=== PATIENT | male | born 1955 | race Caucasian/White ===

== ENCOUNTER 2017-12-18 15:56 | Inpatient (IN) ==
[2017-12-18] MEDS ORDERED: ONDANSETRON 4 MG/2 ML VIAL IV PRN (18:19)
[2017-12-18] MEDS ORDERED: ALBUTEROL 2.5 MG/3 ML NEB RESP TX PRN (18:19)
[2017-12-18] MEDS ORDERED: SODIUM CHLORIDE 0.9% 500 ML IV ONE (18:35)
[2017-12-18 18:48] LABS: Apearance,Urine Slightly Hazy (Clear); Bacteria,Urine Few /HPF (Few); Bilirubin,Urine Negative (Negative); Blood, Urine Moderate mg/dL (Negative); Glucose,Urine (UA) Negative (Negative); Ketones,Urine Negative (Negative); Nitrite,Urine Negative (Negative); Protein,Urine Negative; RBC,Urine 52 /HPF (0-4); Squamous Epithelial Cell,Urine Occasional /HPF (0-10); Urine Color Yellow (Yellow); Urine Specific Gravity 1.013 (1.001-1.035); Urine Urobilinogen < 2.0 EU/DL (0.2-1.0); WBC,Urine 93 /HPF (0-6)
[2017-12-18 18:51] LABS: Basophils % 0.4 % (0.0-0.8); Eosinophils # 0.3 10*3/uL (0.0-0.87); Eosinophils % 2.6 % (0.00-10.9); Hematocrit 24.5 VOL% (42.0-52.0); Hemoglobin 7.4 GM/DL (14.0-18.0); Immature Granulocytes % 0.4 %; Immature Granulocytes Absolute 0.04 #; Lymphocytes # 0.9 10*3/uL (1.4-4.0); Lymphocytes % 8.5 % (21.2-54.2); Mean Corpuscular HGB Conc 30.2 GM/DL (32-36); Mean Corpuscular Hemoglobin 26 PG (27-34); Mean Corpuscular Volume 84.8 FL (87-102); Mean Platelet Volume 10.5 FL (9.6-12.0); Monocytes % 8.9 % (1.7-12.7); Neutrophils # 8.6 10*3/uL (1.4-7.4); Neutrophils % 79.2 % (38.7-73.9); Platelet Count 326 T/CUMM (130-400); Red Blood Count 2.89 MC/CUMM (3.8-5.5); Red Cell Distribution Width 17.1 % (9.3-17.3); White Blood Count 10.8 T/CUMM (4-12)
[2017-12-18] MEDS: ALBUTEROL/IPRATROPIUM 3 ML NEB RESP TX SCH (19:06)
[2017-12-18 19:09] LABS: Ammonia 34 UMOL/L (11-32)
[2017-12-18 19:13] LABS: Lactic Acid 0.8 MMOL/L (0.4-2.0)
[2017-12-18 19:14] LABS: Alanine Aminotransferase 15 U/L (16-61); Alkaline Phosphatase 80 U/L (45-117); Aspartate Amino Transferase 25 U/L (0-37); Bilirubin,Total < 0.39 MG/DL (0.2-1.0); Blood Urea Nitrogen 15 MG/DL (7-18); Calcium 7.6 MG/DL (8.5-10.1); Glucose 91 MG/DL (74-106); Osmolality,Calculated 279.4 MOS/KG (273-304); Potassium 4.4 MMOL/L (3.5-5.1); Sodium 140 MMOL/L (136-145); Total Protein 5.9 G/DL (6.4-8.3)
[2017-12-18] MEDS: SODIUM CHLORIDE 0.9% 1,000 ML IV SCH (19:14)
[2017-12-18 19:15] LABS: Troponin I Only 0.047 NG/ML (0.00-0.045)
[2017-12-18 19:19] LABS: ABG Base Excess 0.4 MMOL/L (-2.5-2.5); ABG HCO3 24.8 MMOL/L (20-26); ABG Oxygen Saturation 99.8 % (95-100); ABG PCO2 54.9 MM HG (35-48); ABG PH 7.304 (7.35-7.45); ABG TCO2 25.8 MMOL/L (23-27)
[2017-12-18] MEDS ORDERED: MAGNESIUM SULF RIDER 1 GM in PREMIX 1 EACH IV ONE (19:32)
[2017-12-18] MEDS: ENOXAPARIN 40 MG/0.4 ML SYRINGE SUBCUT SCH (19:55)
[2017-12-18] MEDS: PANTOPRAZOLE 40 MG VIAL IV SCH (20:50)
[2017-12-19] MEDS: MIDAZOLAM 100 MG in SODIUM CHLORIDE 0.9% 80 ML IV SCH (00:41)
[2017-12-19] MEDS: ALBUTEROL/IPRATROPIUM 3 ML NEB RESP TX SCH ×4 (01:01→19:21)
[2017-12-19] MEDS: PROPOFOL 1,000 MG/100 ML BOTTLE IV SCH ×4 (02:21→18:16)
[2017-12-19 03:43] LABS: ABG Base Excess 0.4 MMOL/L (-2.5-2.5); ABG HCO3 24.8 MMOL/L (20-26); ABG Oxygen Saturation 99.4 % (95-100); ABG PCO2 50.5 MM HG (35-48); ABG PH 7.332 (7.35-7.45); ABG TCO2 25.1 MMOL/L (23-27)
[2017-12-19 04:10] LABS: Basophils # 0.1 10*3/uL (0.0-0.2); Basophils % 0.8 % (0.0-0.8); Eosinophils # 0.9 10*3/uL (0.0-0.87); Eosinophils % 10.8 % (0.00-10.9); Hematocrit 26.7 VOL% (42.0-52.0); Hemoglobin 7.9 GM/DL (14.0-18.0); Immature Granulocytes % 0.4 %; Immature Granulocytes Absolute 0.03 #; Lymphocytes # 1.1 10*3/uL (1.4-4.0); Lymphocytes % 13.5 % (21.2-54.2); Mean Corpuscular HGB Conc 29.6 GM/DL (32-36); Mean Corpuscular Hemoglobin 26 PG (27-34); Mean Corpuscular Volume 86.7 FL (87-102); Mean Platelet Volume 10.6 FL (9.6-12.0); Monocytes # 0.9 10*3/uL (0.11-0.8); Monocytes % 10.7 % (1.7-12.7); Neutrophils # 5.1 10*3/uL (1.4-7.4); Neutrophils % 63.8 % (38.7-73.9); Platelet Count 346 T/CUMM (130-400); Red Blood Count 3.08 MC/CUMM (3.8-5.5); Red Cell Distribution Width 17.3 % (9.3-17.3); White Blood Count 7.9 T/CUMM (4-12)
[2017-12-19 04:52] LABS: Osmolality,Calculated 279.1 MOS/KG (273-304); Potassium 4.1 MMOL/L (3.5-5.1); Risk Ratio 2.78; Thyroid Stimulating Hormone 0.958 uIU/ml (0.358-3.74); VLDL CHOLESTEROL 29.8 MG/DL
[2017-12-19 04:54] LABS: Folate 10.7 NG/ML (5.4-24.0); Vitamin B12 364 PG/ML (211-911)
[2017-12-19] MEDS: DEXTROSE 50% 25 GM/50 ML VIAL IV PRN (05:01)
[2017-12-19] MEDS: SODIUM CHLORIDE 0.9% 1,000 ML IV SCH ×3 (05:06→23:54)
[2017-12-19 05:25] LABS: Sedimentation Rate-Westergren 25 MM/HR (0-20)
[2017-12-19] MEDS: CEFEPIME 1,000 MG in SYRINGE 1 EACH IV SCH ×2 (07:15→18:11)
[2017-12-19] MEDS: methylPREDNISolone SOD SUC 40 MG/1 ML VIAL IV SCH ×2 (07:16→18:12)
[2017-12-19] MEDS: THIAMINE 200 MG/2 ML VIAL IV SCH (08:48)
[2017-12-19] MEDS: HALOPERIDOL 5 MG/ML AMP IV SCH ×2 (08:48→20:27)
[2017-12-19] MEDS ORDERED: GLUCAGON 1 MG VIAL IM PRN (10:56)
[2017-12-19 11:02] LABS: % Iron Saturation 12.7 % (18-50)
[2017-12-19] MEDS: INSULIN REGULAR 100 UNIT/ML SUBCUT SCH ×3 (11:27→23:53)
[2017-12-19 12:05] LABS: Hemoglobin A1 (Alkaline) 97.4 % (96.5-98.5); Hemoglobin A2 (Alkaline) 2.6 % (1.5-3.5)
[2017-12-19] MEDS ORDERED: cefTRIAXone 1,000 MG in SYRINGE 1 EACH IV SCH (16:00)
[2017-12-19] MEDS: AZITHROMYCIN INJ 500 MG in SODIUM CHLORIDE 0.9% 250 ML IV SCH (16:53)
[2017-12-19] MEDS: PANTOPRAZOLE 40 MG VIAL IV SCH (20:25)
[2017-12-19] MEDS: ENOXAPARIN 40 MG/0.4 ML SYRINGE SUBCUT SCH (20:26)
[2017-12-20] MEDS: MIDAZOLAM 100 MG in SODIUM CHLORIDE 0.9% 80 ML IV SCH (00:04)
[2017-12-20] MEDS: ALBUTEROL/IPRATROPIUM 3 ML NEB RESP TX SCH ×4 (00:45→20:02)
[2017-12-20] MEDS: PROPOFOL 1,000 MG/100 ML BOTTLE IV SCH ×6 (01:25→22:52)
[2017-12-20] MEDS: SODIUM CHLORIDE 0.9% 1,000 ML IV SCH ×4 (01:47→22:55)
[2017-12-20 03:24] LABS: Basophils % 0.3 % (0.0-0.8); Hematocrit 28.1 VOL% (42.0-52.0); Hemoglobin 8.5 GM/DL (14.0-18.0); Immature Granulocytes % 0.4 %; Immature Granulocytes Absolute 0.03 #; Lymphocytes # 0.7 10*3/uL (1.4-4.0); Lymphocytes % 8.9 % (21.2-54.2); Mean Corpuscular HGB Conc 30.2 GM/DL (32-36); Mean Corpuscular Hemoglobin 25 PG (27-34); Mean Corpuscular Volume 83.9 FL (87-102); Mean Platelet Volume 11.1 FL (9.6-12.0); Monocytes # 0.5 10*3/uL (0.11-0.8); Monocytes % 6.5 % (1.7-12.7); Neutrophils # 6.3 10*3/uL (1.4-7.4); Neutrophils % 83.9 % (38.7-73.9); Platelet Count 404 T/CUMM (130-400); Red Blood Count 3.35 MC/CUMM (3.8-5.5); Red Cell Distribution Width 17.5 % (9.3-17.3); White Blood Count 7.5 T/CUMM (4-12)
[2017-12-20 03:32] LABS: Calcium 7.6 MG/DL (8.5-10.1); Potassium 4.6 MMOL/L (3.5-5.1)
[2017-12-20 04:22] LABS: ABG Base Excess 0.8 MMOL/L (-2.5-2.5); ABG HCO3 26.4 MMOL/L (20-26); ABG Oxygen Saturation 98.4 % (95-100); ABG PCO2 47.2 MM HG (35-48); ABG PH 7.365 (7.35-7.45); ABG PO2 142.7 MM HG (80-95); ABG TCO2 27.8 MMOL/L (23-27)
[2017-12-20] MEDS: INSULIN REGULAR 100 UNIT/ML SUBCUT SCH ×4 (06:12→23:08)
[2017-12-20] MEDS: methylPREDNISolone SOD SUC 40 MG/1 ML VIAL IV SCH (06:25)
[2017-12-20] MEDS: CEFEPIME 1,000 MG in SYRINGE 1 EACH IV SCH ×2 (06:28→18:17)
[2017-12-20] MEDS: HALOPERIDOL 5 MG/ML AMP IV SCH ×3 (08:24→18:17)
[2017-12-20] MEDS: THIAMINE 200 MG/2 ML VIAL IV SCH (08:26)
[2017-12-20] MEDS: chlordiazePOXIDE 25 MG CAPSULE NG SCH ×3 (11:00→22:49)
[2017-12-20] MEDS: AZITHROMYCIN INJ 500 MG in SODIUM CHLORIDE 0.9% 250 ML IV SCH (15:15)
[2017-12-20] MEDS ORDERED: SODIUM CHLORIDE 0.9% 1,000 ML IV ONE (15:19)
[2017-12-20] MEDS: ENOXAPARIN 40 MG/0.4 ML SYRINGE SUBCUT SCH (22:07)
[2017-12-20] MEDS: PANTOPRAZOLE 40 MG VIAL IV SCH (22:08)
[2017-12-21] MEDS: ALBUTEROL/IPRATROPIUM 3 ML NEB RESP TX SCH ×4 (01:19→19:09)
[2017-12-21] MEDS: HALOPERIDOL 5 MG/ML AMP IV SCH ×4 (01:54→18:20)
[2017-12-21] MEDS: MIDAZOLAM 100 MG in SODIUM CHLORIDE 0.9% 80 ML IV SCH (01:56)
[2017-12-21 03:34] LABS: Basophils % 0.3 % (0.0-0.8); Eosinophils # 0.1 10*3/uL (0.0-0.87); Eosinophils % 1.4 % (0.00-10.9); Hematocrit 25.8 VOL% (42.0-52.0); Hemoglobin 7.9 GM/DL (14.0-18.0); Immature Granulocytes % 0.4 %; Immature Granulocytes Absolute 0.04 #; Lymphocytes # 1.6 10*3/uL (1.4-4.0); Lymphocytes % 15.8 % (21.2-54.2); Mean Corpuscular HGB Conc 30.6 GM/DL (32-36); Mean Corpuscular Hemoglobin 25 PG (27-34); Mean Corpuscular Volume 82.2 FL (87-102); Monocytes # 1.1 10*3/uL (0.11-0.8); Monocytes % 11.3 % (1.7-12.7); Neutrophils # 7.1 10*3/uL (1.4-7.4); Neutrophils % 70.8 % (38.7-73.9); Platelet Count 448 T/CUMM (130-400); Red Blood Count 3.14 MC/CUMM (3.8-5.5); Red Cell Distribution Width 17.7 % (9.3-17.3)
[2017-12-21] MEDS: PROPOFOL 1,000 MG/100 ML BOTTLE IV SCH ×3 (04:02→17:35)
[2017-12-21 04:10] LABS: ABG Base Excess -0.4 MMOL/L (-2.5-2.5); ABG Oxygen Saturation 85.7 % (95-100); ABG PCO2 44.9 MM HG (35-48); ABG PH 7.364 (7.35-7.45); ABG TCO2 26.4 MMOL/L (23-27); Pt O2 Delivery Device Ventilator
[2017-12-21] MEDS: chlordiazePOXIDE 25 MG CAPSULE NG SCH ×4 (05:29→22:33)
[2017-12-21] MEDS: INSULIN REGULAR 100 UNIT/ML SUBCUT SCH ×3 (05:29→18:10)
[2017-12-21 05:34] LABS: ABG Base Excess -0.9 MMOL/L (-2.5-2.5); ABG HCO3 23.6 MMOL/L (20-26); ABG Oxygen Saturation 97.5 % (95-100); ABG PCO2 42.1 MM HG (35-48); ABG PO2 93.1 MM HG (80-95); ABG TCO2 22.7 MMOL/L (23-27); Pt O2 Delivery Device Ventilator
[2017-12-21] MEDS: methylPREDNISolone SOD SUC 40 MG/1 ML VIAL IV SCH (06:15)
[2017-12-21] MEDS: CEFEPIME 1,000 MG in SYRINGE 1 EACH IV SCH ×2 (06:21→18:20)
[2017-12-21] MEDS: SODIUM CHLORIDE 0.9% 1,000 ML IV SCH (08:00)
[2017-12-21 08:31] LABS: ABG Base Excess -2.6 MMOL/L (-2.5-2.5); ABG HCO3 22.2 MMOL/L (20-26); ABG Oxygen Saturation 92.5 % (95-100); ABG PCO2 47.6 MM HG (35-48); ABG PH 7.308 (7.35-7.45); ABG PO2 69.2 MM HG (80-95); ABG TCO2 22.2 MMOL/L (23-27)
[2017-12-21] MEDS: THIAMINE 200 MG/2 ML VIAL IV SCH (09:50)
[2017-12-21] MEDS: IRON SUCROSE 100 MG/5 ML VIAL IV SCH (09:55)
[2017-12-21] MEDS: AZITHROMYCIN INJ 500 MG in SODIUM CHLORIDE 0.9% 250 ML IV SCH (16:00)
[2017-12-21] MEDS: ENOXAPARIN 40 MG/0.4 ML SYRINGE SUBCUT SCH (19:42)
[2017-12-21] MEDS: PANTOPRAZOLE 40 MG VIAL IV SCH (21:05)
[2017-12-22] MEDS: SODIUM CHLORIDE 0.9% 1,000 ML IV SCH ×3 (01:03→22:03)
[2017-12-22] MEDS: INSULIN REGULAR 100 UNIT/ML SUBCUT SCH ×4 (01:05→18:02)
[2017-12-22] MEDS: MIDAZOLAM 100 MG in SODIUM CHLORIDE 0.9% 80 ML IV SCH ×3 (01:06→19:05)
[2017-12-22] MEDS: PROPOFOL 1,000 MG/100 ML BOTTLE IV SCH ×3 (01:06→06:55)
[2017-12-22] MEDS: ALBUTEROL/IPRATROPIUM 3 ML NEB RESP TX SCH ×4 (01:25→19:52)
[2017-12-22] MEDS: HALOPERIDOL 5 MG/ML AMP IV SCH ×4 (01:32→18:45)
[2017-12-22 04:10] LABS: ABG Base Excess 2.5 MMOL/L (-2.5-2.5); ABG HCO3 27.2 MMOL/L (20-26); ABG Oxygen Saturation 96.8 % (95-100); ABG PCO2 42.7 MM HG (35-48); ABG PH 7.422 (7.35-7.45); ABG PO2 97.6 MM HG (80-95); ABG TCO2 28.5 MMOL/L (23-27)
[2017-12-22] MEDS: chlordiazePOXIDE 25 MG CAPSULE NG SCH ×2 (04:12→10:45)
[2017-12-22 04:25] LABS: Basophils # 0.1 10*3/uL (0.0-0.2); Basophils % 0.7 % (0.0-0.8); Eosinophils # 0.2 10*3/uL (0.0-0.87); Hematocrit 26.9 VOL% (42.0-52.0); Hemoglobin 8.4 GM/DL (14.0-18.0); Immature Granulocytes % 0.3 %; Immature Granulocytes Absolute 0.02 #; Lymphocytes # 1.5 10*3/uL (1.4-4.0); Lymphocytes % 20.3 % (21.2-54.2); Mean Corpuscular HGB Conc 31.2 GM/DL (32-36); Mean Corpuscular Hemoglobin 25 PG (27-34); Mean Corpuscular Volume 80.8 FL (87-102); Mean Platelet Volume 10.9 FL (9.6-12.0); Monocytes # 0.8 10*3/uL (0.11-0.8); Monocytes % 10.9 % (1.7-12.7); Neutrophils # 4.8 10*3/uL (1.4-7.4); Neutrophils % 64.8 % (38.7-73.9); Platelet Count 458 T/CUMM (130-400); Red Blood Count 3.33 MC/CUMM (3.8-5.5); Red Cell Distribution Width 17.9 % (9.3-17.3); White Blood Count 7.4 T/CUMM (4-12)
[2017-12-22 05:01] LABS: Calcium 8.3 MG/DL (8.5-10.1); Osmolality,Calculated 292.4 MOS/KG (273-304); Potassium 4.2 MMOL/L (3.5-5.1); Prealbumin 16.5 MG/DL (20-40)
[2017-12-22] MEDS: methylPREDNISolone SOD SUC 40 MG/1 ML VIAL IV SCH (06:35)
[2017-12-22] MEDS: CEFEPIME 1,000 MG in SYRINGE 1 EACH IV SCH ×2 (06:35→18:45)
[2017-12-22] MEDS: THIAMINE 200 MG/2 ML VIAL IV SCH (08:38)
[2017-12-22] MEDS: IRON SUCROSE 100 MG/5 ML VIAL IV SCH (08:40)
[2017-12-22 09:54] LABS: ABG Base Excess 2.4 MMOL/L (-2.5-2.5); ABG HCO3 26.5 MMOL/L (20-26); ABG Oxygen Saturation 90.7 % (95-100); ABG PCO2 45.5 MM HG (35-48); ABG PH 7.392 (7.35-7.45); ABG PO2 61.9 MM HG (80-95); ABG TCO2 25.6 MMOL/L (23-27)
[2017-12-22 12:40] LABS: ABG Base Excess 3.3 MMOL/L (-2.5-2.5); ABG HCO3 27.3 MMOL/L (20-26); ABG Oxygen Saturation 97.6 % (95-100); ABG PCO2 45.4 MM HG (35-48); ABG PH 7.405 (7.35-7.45); ABG PO2 98.8 MM HG (80-95); ABG TCO2 26.3 MMOL/L (23-27)
[2017-12-22] MEDS: AZITHROMYCIN INJ 500 MG in SODIUM CHLORIDE 0.9% 250 ML IV SCH (16:40)
[2017-12-22] MEDS: PANTOPRAZOLE 40 MG VIAL IV SCH (20:17)
[2017-12-22] MEDS: ENOXAPARIN 40 MG/0.4 ML SYRINGE SUBCUT SCH (20:19)
[2017-12-23] MEDS: DEXTROSE 50% 25 GM/50 ML VIAL IV PRN ×2 (00:27→06:05)
[2017-12-23] MEDS: ALBUTEROL/IPRATROPIUM 3 ML NEB RESP TX SCH ×4 (00:52→19:16)
[2017-12-23] MEDS: INSULIN REGULAR 100 UNIT/ML SUBCUT SCH ×5 (01:00→23:22)
[2017-12-23] MEDS: HALOPERIDOL 5 MG/ML AMP IV SCH ×2 (01:03→06:06)
[2017-12-23 04:45] LABS: Basophils # 0.1 10*3/uL (0.0-0.2); Basophils % 0.7 % (0.0-0.8); Eosinophils # 0.3 10*3/uL (0.0-0.87); Hemoglobin 8.4 GM/DL (14.0-18.0); Immature Granulocytes % 0.3 %; Immature Granulocytes Absolute 0.03 #; Lymphocytes # 1.9 10*3/uL (1.4-4.0); Lymphocytes % 21.3 % (21.2-54.2); Mean Corpuscular HGB Conc 31.1 GM/DL (32-36); Mean Corpuscular Hemoglobin 25 PG (27-34); Mean Corpuscular Volume 80.1 FL (87-102); Mean Platelet Volume 10.9 FL (9.6-12.0); Monocytes # 1.3 10*3/uL (0.11-0.8); Monocytes % 13.9 % (1.7-12.7); Neutrophils # 5.5 10*3/uL (1.4-7.4); Neutrophils % 60.8 % (38.7-73.9); Platelet Count 463 T/CUMM (130-400); Red Blood Count 3.37 MC/CUMM (3.8-5.5); Red Cell Distribution Width 17.8 % (9.3-17.3)
[2017-12-23 05:12] LABS: Calcium 8.5 MG/DL (8.5-10.1); Osmolality,Calculated 287.7 MOS/KG (273-304); Potassium 3.9 MMOL/L (3.5-5.1)
[2017-12-23] MEDS: CEFEPIME 1,000 MG in SYRINGE 1 EACH IV SCH ×2 (06:06→18:15)
[2017-12-23] MEDS: methylPREDNISolone SOD SUC 40 MG/1 ML VIAL IV SCH (06:06)
[2017-12-23] MEDS ORDERED: HALOPERIDOL 5 MG/ML AMP IV SCH (07:00)
[2017-12-23] MEDS: DEXT 5% NACL 0.45% KCL 10 MEQ 10 MEQ/1,000 ML BAG IV SCH ×2 (07:06→22:10)
[2017-12-23] MEDS: IRON SUCROSE 100 MG/5 ML VIAL IV SCH (08:16)
[2017-12-23] MEDS: THIAMINE 200 MG/2 ML VIAL IV SCH (08:22)
[2017-12-23] MEDS: ZIPRASIDONE 20 MG/1 ML VIAL IM SCH ×2 (11:05→17:36)
[2017-12-23] MEDS: AZITHROMYCIN INJ 500 MG in SODIUM CHLORIDE 0.9% 250 ML IV SCH (16:24)
[2017-12-23] MEDS: ENOXAPARIN 40 MG/0.4 ML SYRINGE SUBCUT SCH (22:05)
[2017-12-23] MEDS: PANTOPRAZOLE 40 MG VIAL IV SCH (22:06)
[2017-12-24] MEDS: ZIPRASIDONE 20 MG/1 ML VIAL IM SCH ×3 (00:10→17:47)
[2017-12-24] MEDS: ALBUTEROL/IPRATROPIUM 3 ML NEB RESP TX SCH ×4 (00:41→19:24)
[2017-12-24] MEDS: INSULIN REGULAR 100 UNIT/ML SUBCUT SCH ×3 (07:07→18:03)
[2017-12-24] MEDS: CEFEPIME 1,000 MG in SYRINGE 1 EACH IV SCH ×2 (07:14→18:11)
[2017-12-24] MEDS: THIAMINE 200 MG/2 ML VIAL IV SCH (10:16)
[2017-12-24] MEDS: DEXT 5% NACL 0.45% KCL 10 MEQ 10 MEQ/1,000 ML BAG IV SCH (10:20)
[2017-12-24] MEDS ORDERED: ZIPRASIDONE 20 MG/1 ML VIAL IM PRN (12:40)
[2017-12-24] MEDS: QUEtiapine 25 MG TABLET PO SCH (13:39)
[2017-12-24] MEDS: AZITHROMYCIN INJ 500 MG in SODIUM CHLORIDE 0.9% 250 ML IV SCH (15:58)
[2017-12-24] MEDS: PANTOPRAZOLE 40 MG VIAL IV SCH (20:27)
[2017-12-24] MEDS: ENOXAPARIN 40 MG/0.4 ML SYRINGE SUBCUT SCH (20:28)
[2017-12-25] MEDS: ALBUTEROL/IPRATROPIUM 3 ML NEB RESP TX SCH ×4 (00:21→19:44)
[2017-12-25] MEDS: QUEtiapine 25 MG TABLET PO SCH ×3 (00:22→20:24)
[2017-12-25] MEDS: INSULIN REGULAR 100 UNIT/ML SUBCUT SCH ×5 (01:30→20:21)
[2017-12-25] MEDS: DEXT 5% NACL 0.45% KCL 10 MEQ 10 MEQ/1,000 ML BAG IV SCH ×2 (02:08→13:42)
[2017-12-25 05:24] LABS: Basophils # 0.1 10*3/uL (0.0-0.2); Eosinophils % 9.5 % (0.00-10.9); Hematocrit 30.4 VOL% (42.0-52.0); Hemoglobin 9.3 GM/DL (14.0-18.0); Immature Granulocytes % 0.7 %; Immature Granulocytes Absolute 0.07 #; Lymphocytes # 2.1 10*3/uL (1.4-4.0); Lymphocytes % 19.8 % (21.2-54.2); Mean Corpuscular HGB Conc 30.6 GM/DL (32-36); Mean Corpuscular Hemoglobin 25 PG (27-34); Mean Corpuscular Volume 82.4 FL (87-102); Mean Platelet Volume 10.9 FL (9.6-12.0); Monocytes # 1.2 10*3/uL (0.11-0.8); Monocytes % 11.7 % (1.7-12.7); Neutrophils # 6.1 10*3/uL (1.4-7.4); Neutrophils % 57.3 % (38.7-73.9); Platelet Count 409 T/CUMM (130-400); Red Blood Count 3.69 MC/CUMM (3.8-5.5); Red Cell Distribution Width 17.3 % (9.3-17.3); White Blood Count 10.6 T/CUMM (4-12)
[2017-12-25 05:39] LABS: Calcium 8.6 MG/DL (8.5-10.1); Osmolality,Calculated 284.8 MOS/KG (273-304)
[2017-12-25] MEDS: CEFEPIME 1,000 MG in SYRINGE 1 EACH IV SCH ×2 (07:11→18:39)
[2017-12-25] MEDS: THIAMINE 200 MG/2 ML VIAL IV SCH (08:52)
[2017-12-25] MEDS ORDERED: ACETAMINOPHEN 325 MG TABLET ONE (09:55)
[2017-12-25] MEDS: ACETAMINOPHEN 325 MG TABLET PO PRN ×2 (09:58→22:03)
[2017-12-25] MEDS: PANTOPRAZOLE 40 MG TABLET PO SCH (13:42)
[2017-12-25] MEDS: AZITHROMYCIN INJ 500 MG in SODIUM CHLORIDE 0.9% 250 ML IV SCH (16:52)
[2017-12-25] MEDS: ENOXAPARIN 40 MG/0.4 ML SYRINGE SUBCUT SCH (20:24)
[2017-12-26] MEDS: ALBUTEROL/IPRATROPIUM 3 ML NEB RESP TX SCH ×2 (01:55→07:10)
[2017-12-26] MEDS: DEXT 5% NACL 0.45% KCL 10 MEQ 10 MEQ/1,000 ML BAG IV SCH (04:39)
[2017-12-26] MEDS: ACETAMINOPHEN 325 MG TABLET PO PRN (04:43)
[2017-12-26] MEDS: CEFEPIME 1,000 MG in SYRINGE 1 EACH IV SCH (06:06)
[2017-12-26 06:10] LABS: Calcium 8.1 MG/DL (8.5-10.1); Osmolality,Calculated 289.7 MOS/KG (273-304); Potassium 3.9 MMOL/L (3.5-5.1)
[2017-12-26] MEDS ORDERED: THIAMINE 100 MG TABLET PO SCH (09:00)
[2017-12-26] MEDS: INSULIN REGULAR 100 UNIT/ML SUBCUT SCH ×2 (09:13→11:41)
[2017-12-26] MEDS: QUEtiapine 25 MG TABLET PO SCH (09:13)
[2017-12-26] MEDS: PANTOPRAZOLE 40 MG TABLET PO SCH (09:13)
[2017-12-26 12:29] VITALS: BP 140/88
== END 2017-12-26 14:08 | disposition home or self-care (01) | DRG 92 ==
LOC: N.ICU 18:16 → SUATTDRO 18:16 → N.2E 12-25 13:59
PROVIDERS: ADMIT Internal Medicine; ATTEND Internal Medicine

== ENCOUNTER 2019-07-22 19:45 | Inpatient (IN) ==
[2019-07-22] MEDS ORDERED: SODIUM CHLORIDE 0.9% 1,000 ML IV ONE (22:09)
[2019-07-22] MEDS ORDERED: MAGNESIUM SULF RIDER 4 GM in PREMIX 1 EACH IV PRN (22:20)
[2019-07-22] MEDS ORDERED: POTASSIUM CHLORIDE 20 MEQ TABLET PO PRN (22:20)
[2019-07-22] MEDS ORDERED: POTASSIUM CHLORIDE RIDER 10 MEQ in PREMIX 1 EACH IV PRN (22:20)
[2019-07-22] MEDS ORDERED: MAGNESIUM SULF RIDER 2 GM in PREMIX 1 EACH IV PRN (22:20)
[2019-07-22] MEDS ORDERED: ACETAMINOPHEN 325 MG TABLET PO PRN (22:21)
[2019-07-22] MEDS ORDERED: diphenhydrAMINE CAP 25 MG CAPSULE PO PRN (22:31)
[2019-07-22] MEDS ORDERED: ONDANSETRON 4 MG/2 ML VIAL IV PRN (22:31)
[2019-07-22] MEDS ORDERED: hydrALAZINE 20 MG/1 ML VIAL IV PRN (22:31)
[2019-07-22] MEDS ORDERED: NICOTINE 21 MG/24 HR PATCH TRANSDERM PRN (22:31)
[2019-07-22] MEDS ORDERED: NOREPINEPHRINE 4 MG/4 ML VIAL IV ONE (22:39)
[2019-07-22] MEDS: dilTIAZem Drip 125 MG/125 ML PREMIX IV SCH (22:41)
[2019-07-22 22:44] LABS: Allen Test Positive
[2019-07-22] MEDS: NOREPINEPHRINE 8 MG in SODIUM CHLORIDE 0.9% 242 ML IV PRN (22:44)
[2019-07-22 22:45] LABS: Basophils # 0.1 10*3/uL (0.0-0.2); Basophils % 0.2 % (0.0-0.8); Hematocrit 28.6 VOL% (42.0-52.0); Hemoglobin 8.4 GM/DL (14.0-18.0); Immature Granulocytes % 4.4 %; Immature Granulocytes Absolute 1.18 #; Lymphocytes # 0.4 10*3/uL (1.4-4.0); Lymphocytes % 1.5 % (21.2-54.2); Mean Corpuscular HGB Conc 29.4 GM/DL (32-36); Mean Corpuscular Volume 86.9 FL (87-102); Mean Platelet Volume 11.1 FL (9.6-12.0); Monocytes % 4.3 % (1.7-12.7); Neutrophils % 89.6 % (38.7-73.9); Platelet Count 228 T/CUMM (130-400); Red Blood Count 3.29 MC/CUMM (3.8-5.5); Red Cell Distribution Width 16.2 % (9.3-17.3); White Blood Count 26.8 T/CUMM (4-12)
[2019-07-22 22:45] LABS: ABG Base Excess -2.7 MMOL/L (-2.5-2.5); ABG HCO3 24.3 MMOL/L (20-26); ABG Oxygen Saturation 75.1 % (95-100); ABG PCO2 54.1 MM HG (35-48); ABG PH 7.271 (7.35-7.45); ABG PO2 44.2 MM HG (80-95)
[2019-07-22] MEDS: MORPHINE 4 MG/1 ML VIAL IV PRN (22:48)
[2019-07-22] MEDS ORDERED: PIPERACILLIN/TAZOBACTAM 3,375 MG in SODIUM CHLORIDE 0.9% 100 ML IV SCH (23:00)
[2019-07-22 23:09] LABS: INR 1.1; PT Patient Result 12.2 SECS (9.6-12.2); Partial Thromboplastin Time 35.9 SECS (20.8-36.0)
[2019-07-22 23:11] LABS: Blood Urea Nitrogen 26 MG/DL (7-18); Estimated Glom Filtration Rate 55 ML/MIN; Glucose 106 MG/DL (74-106); Osmolality,Calculated 279.7 MOS/KG (273-304); Troponin I < 0.015 NG/ML (0.00-0.045)
[2019-07-22 23:13] LABS: Band Neutrophils 15 % (0-10); Segmented Neutrophils 81 % (50-85); Total Cells Counted 100
[2019-07-22 23:14] LABS: Anisocytosis 1+; Hypochromasia 1+; Microcytosis 1+
[2019-07-22 23:15] LABS: Polychromasia Slight
[2019-07-22 23:16] LABS: Ovalocytes Slight; Platelet Estimate Normal; Stomatocytes Slight
[2019-07-22 23:19] LABS: Alanine Aminotransferase 15 U/L (16-61); Albumin 2.1 G/DL (3.4-5.0); Alkaline Phosphatase 69 U/L (45-117); Aspartate Amino Transferase 12 U/L (0-37); Bilirubin,Indirect 0.3 MG/DL (0.0-1.0); Total Protein 6.1 G/DL (6.4-8.3)
[2019-07-23] MEDS: LEVOFLOXACIN INJ 750 MG in PREMIX 1 EACH IV SCH (00:52)
[2019-07-23] MEDS: VANCOMYCIN INJ 1,000 MG in SODIUM CHLORIDE 0.9% 250 ML IV SCH ×3 (00:53→23:34)
[2019-07-23] MEDS: ALBUTEROL/IPRATROPIUM 3 ML NEB RESP TX SCH ×4 (00:54→19:50)
[2019-07-23 00:57] LABS: ABG Base Excess -3.8 MMOL/L (-2.5-2.5); ABG HCO3 21.1 MMOL/L (20-26); ABG Oxygen Saturation 92.7 % (95-100); ABG PCO2 51.3 MM HG (35-48); ABG PH 7.266 (7.35-7.45); ABG PO2 68.2 MM HG (80-95); ABG TCO2 21.9 MMOL/L (23-27); Allen Test Positive
[2019-07-23 04:00] LABS: ABG Base Excess -5.4 MMOL/L (-2.5-2.5); ABG HCO3 19.9 MMOL/L (20-26); ABG Oxygen Saturation 97.7 % (95-100); ABG PH 7.255 (7.35-7.45); ABG TCO2 20.5 MMOL/L (23-27); Allen Test Positive; Pt O2 Delivery Device Other
[2019-07-23] MEDS: MORPHINE 4 MG/1 ML VIAL IV PRN ×3 (04:18→13:47)
[2019-07-23] MEDS: PIPERACILLIN/TAZOBACTAM 3,375 MG in SODIUM CHLORIDE 0.9% 100 ML IV SCH ×3 (04:23→18:36)
[2019-07-23 08:29] LABS: Hematocrit 30.8 VOL% (42.0-52.0); Hemoglobin 9.1 GM/DL (14.0-18.0); Mean Corpuscular HGB Conc 29.5 GM/DL (32-36); Red Cell Distribution Width 16.2 % (9.3-17.3)
[2019-07-23 08:33] LABS: Basophils # 0.1 10*3/uL (0.0-0.2); Basophils % 0.3 % (0.0-0.8); Immature Granulocytes Absolute 1.52 #; Lymphocytes # 0.8 10*3/uL (1.4-4.0); Lymphocytes % 2.1 % (21.2-54.2); Mean Corpuscular Volume 85.8 FL (87-102); Mean Platelet Volume 10.8 FL (9.6-12.0); Monocytes % 4.1 % (1.7-12.7); Neutrophils % 89.5 % (38.7-73.9); Red Blood Count 3.59 MC/CUMM (3.8-5.5)
[2019-07-23 08:35] LABS: Platelet Count 291 T/CUMM (130-400); White Blood Count 37.6 T/CUMM (4-12)
[2019-07-23] MEDS: OSELTAMIVIR 30 MG CAPSULE PO SCH ×2 (08:48→16:41)
[2019-07-23 08:54] LABS: Band Neutrophils 13 % (0-10); Lymphocytes 1 % (20-55); Segmented Neutrophils 77 % (50-85); Total Cells Counted 100
[2019-07-23] MEDS: HYDROCORTISONE 100 MG VIAL IV SCH ×3 (08:54→23:33)
[2019-07-23 08:55] LABS: Hypochromasia 1+; Microcytosis 1+
[2019-07-23 08:56] LABS: Anisocytosis 1+; Ovalocytes Slight; Platelet Estimate Normal
[2019-07-23] MEDS ORDERED: OSELTAMIVIR 30 MG CAPSULE PO SCH (09:00)
[2019-07-23 09:46] LABS: Calcium 8.4 MG/DL (8.5-10.1); Osmolality,Calculated 283.7 MOS/KG (273-304)
[2019-07-23] MEDS: NOREPINEPHRINE 8 MG in SODIUM CHLORIDE 0.9% 242 ML IV PRN (12:01)
[2019-07-23 12:46] LABS: Apearance,Urine CLEAR (Clear); Bilirubin,Urine Negative (Negative); Blood, Urine Negative (Negative); Glucose,Urine (UA) Negative (Negative); Hyaline Casts,Urine 1 /LPF (0-3); Ketones,Urine Negative (Negative); Mucus,Urine Occasional /LPF (Occasional); Nitrite,Urine Negative (Negative); Protein,Urine Negative; RBC,Urine 1 /HPF (0-4); Squamous Epithelial Cell,Urine Occasional /HPF (0-10); Urine Color Yellow (Yellow); Urine Specific Gravity 1.017 (1.001-1.035); Urine Urobilinogen < 2.0 EU/DL (0.2-1.0); WBC,Urine <1 /HPF (0-6)
[2019-07-23] MEDS: traZODone 50 MG TABLET PO SCH (20:32)
[2019-07-23] MEDS: guaiFENesin/DM ER 600-30 MG TABLET PO PRN (20:32)
[2019-07-23] MEDS: dilTIAZem Drip 125 MG/125 ML PREMIX IV SCH ×2 (20:37→23:25)
[2019-07-24] MEDS: LEVOFLOXACIN INJ 750 MG in PREMIX 1 EACH IV SCH ×2 (00:36→23:32)
[2019-07-24] MEDS: ALBUTEROL/IPRATROPIUM 3 ML NEB RESP TX SCH ×4 (00:49→18:10)
[2019-07-24 02:58] LABS: ABG Base Excess -0.8 MMOL/L (-2.5-2.5); ABG HCO3 23.7 MMOL/L (20-26); ABG Oxygen Saturation 94.5 % (95-100); ABG PCO2 47.2 MM HG (35-48); ABG PH 7.336 (7.35-7.45); ABG PO2 71.9 MM HG (80-95); ABG TCO2 23.5 MMOL/L (23-27); Allen Test Positive
[2019-07-24] MEDS: PIPERACILLIN/TAZOBACTAM 3,375 MG in SODIUM CHLORIDE 0.9% 100 ML IV SCH ×2 (04:20→11:30)
[2019-07-24 04:50] LABS: Basophils % 0.1 % (0.0-0.8); Hematocrit 28.4 VOL% (42.0-52.0); Hemoglobin 8.3 GM/DL (14.0-18.0); Immature Granulocytes % 4.4 %; Immature Granulocytes Absolute 1.42 #; Lymphocytes # 0.5 10*3/uL (1.4-4.0); Lymphocytes % 1.7 % (21.2-54.2); Mean Corpuscular HGB Conc 29.2 GM/DL (32-36); Mean Corpuscular Volume 86.1 FL (87-102); Mean Platelet Volume 11.2 FL (9.6-12.0); Monocytes % 7.6 % (1.7-12.7); Neutrophils % 86.2 % (38.7-73.9); Platelet Count 297 T/CUMM (130-400); Red Cell Distribution Width 16.3 % (9.3-17.3); White Blood Count 32.3 T/CUMM (4-12)
[2019-07-24 05:03] LABS: Calcium 8.2 MG/DL (8.5-10.1); Osmolality,Calculated 293.3 MOS/KG (273-304)
[2019-07-24 05:15] LABS: Band Neutrophils 4 % (0-10); Hypochromasia 1+; Lymphocytes 1 % (20-55); Platelet Estimate Adequate; Segmented Neutrophils 92 % (50-85); Total Cells Counted 100
[2019-07-24 05:16] LABS: Microcytosis 1+; Ovalocytes Slight
[2019-07-24] MEDS: NOREPINEPHRINE 8 MG in SODIUM CHLORIDE 0.9% 242 ML IV PRN (06:37)
[2019-07-24] MEDS: HYDROCORTISONE 100 MG VIAL IV SCH ×2 (07:46→21:39)
[2019-07-24] MEDS: OSELTAMIVIR 30 MG CAPSULE PO SCH ×2 (07:48→16:58)
[2019-07-24] MEDS: dilTIAZem Drip 125 MG/125 ML PREMIX IV SCH ×2 (09:14→23:31)
[2019-07-24] MEDS ORDERED: DIGOXIN 0.5 MG/2 ML AMP IV ONE ×2 (09:35→11:00)
[2019-07-24] MEDS: LACTATED RINGERS 1,000 ML IV SCH (11:31)
[2019-07-24] MEDS: VANCOMYCIN INJ 1,000 MG in SODIUM CHLORIDE 0.9% 250 ML IV SCH ×2 (13:52→23:32)
[2019-07-24] MEDS: clonazePAM 0.5 MG TABLET PO PRN (19:31)
[2019-07-24] MEDS: guaiFENesin/DM ER 600-30 MG TABLET PO PRN (21:39)
[2019-07-24] MEDS: traZODone 50 MG TABLET PO SCH (21:39)
[2019-07-24] MEDS ORDERED: INFLUENZA VIRUS VACCINE 0.5 ML SYRINGE IM ONE (22:16)
[2019-07-25] MEDS: PIPERACILLIN/TAZOBACTAM 3,375 MG in SODIUM CHLORIDE 0.9% 100 ML IV SCH ×2 (00:27→08:45)
[2019-07-25] MEDS: ALBUTEROL/IPRATROPIUM 3 ML NEB RESP TX SCH ×4 (00:50→19:25)
[2019-07-25] MEDS: clonazePAM 0.5 MG TABLET PO PRN ×2 (02:31→18:09)
[2019-07-25 04:54] LABS: Basophils # 0.1 10*3/uL (0.0-0.2); Basophils % 0.3 % (0.0-0.8); Eosinophils % 0.1 % (0.00-10.9); Hematocrit 27.7 VOL% (42.0-52.0); Hemoglobin 8.1 GM/DL (14.0-18.0); Immature Granulocytes % 3.5 %; Immature Granulocytes Absolute 0.66 #; Lymphocytes # 0.6 10*3/uL (1.4-4.0); Lymphocytes % 3.3 % (21.2-54.2); Mean Corpuscular HGB Conc 29.2 GM/DL (32-36); Mean Corpuscular Volume 85.8 FL (87-102); Mean Platelet Volume 10.8 FL (9.6-12.0); Monocytes % 8.7 % (1.7-12.7); NRBC # 0.03 10*3/uL; Neutrophils % 84.1 % (38.7-73.9); Platelet Count 293 T/CUMM (130-400); Red Blood Count 3.23 MC/CUMM (3.8-5.5); Red Cell Distribution Width 16.6 % (9.3-17.3)
[2019-07-25 05:15] LABS: Hypochromasia 1+; Lymphocytes 4 % (20-55); Ovalocytes Slight; Platelet Estimate Adequate; Segmented Neutrophils 87 % (50-85); Total Cells Counted 100
[2019-07-25 05:16] LABS: Microcytosis 1+
[2019-07-25 05:49] LABS: Calcium 8.3 MG/DL (8.5-10.1); Osmolality,Calculated 294.1 MOS/KG (273-304)
[2019-07-25] MEDS: LACTATED RINGERS 1,000 ML IV SCH ×2 (05:56→05:57)
[2019-07-25] MEDS: HYDROCORTISONE 100 MG VIAL IV SCH (05:57)
[2019-07-25] MEDS: OSELTAMIVIR 30 MG CAPSULE PO SCH ×2 (08:46→17:33)
[2019-07-25] MEDS: predniSONE 20 MG TABLET PO SCH ×2 (10:35→20:48)
[2019-07-25] MEDS: DILTIAZEM CD 180 MG CAPSULE PO SCH (10:36)
[2019-07-25] MEDS ORDERED: HYDROCORTISONE 100 MG VIAL IV ONE (13:00)
[2019-07-25] MEDS: dilTIAZem Drip 125 MG/125 ML PREMIX IV SCH (14:37)
[2019-07-25] MEDS ORDERED: DILTIAZEM 60 MG TABLET PO ONE (16:58)
[2019-07-25] MEDS: AMOXICILLIN/CLAV 875 MG TABLET PO SCH (17:06)
[2019-07-25] MEDS: traZODone 50 MG TABLET PO SCH (20:48)
[2019-07-26] MEDS: dilTIAZem Drip 125 MG/125 ML PREMIX IV SCH ×2 (00:03→19:24)
[2019-07-26] MEDS: ALBUTEROL/IPRATROPIUM 3 ML NEB RESP TX SCH ×4 (00:58→22:05)
[2019-07-26 05:41] LABS: Basophils # 0.1 10*3/uL (0.0-0.2); Basophils % 0.6 % (0.0-0.8); Hematocrit 31.3 VOL% (42.0-52.0); Hemoglobin 9.2 GM/DL (14.0-18.0); Immature Granulocytes % 6.6 %; Immature Granulocytes Absolute 1.03 #; Lymphocytes # 0.9 10*3/uL (1.4-4.0); Lymphocytes % 5.8 % (21.2-54.2); Mean Corpuscular HGB Conc 29.4 GM/DL (32-36); Mean Corpuscular Volume 85.3 FL (87-102); Mean Platelet Volume 10.9 FL (9.6-12.0); NRBC # 0.08 10*3/uL; Platelet Count 347 T/CUMM (130-400); Red Blood Count 3.67 MC/CUMM (3.8-5.5); Red Cell Distribution Width 16.9 % (9.3-17.3); White Blood Count 15.6 T/CUMM (4-12)
[2019-07-26 05:44] LABS: Calcium 8.3 MG/DL (8.5-10.1)
[2019-07-26 06:17] LABS: Lymphocytes 11 % (20-55); Metamyelocytes 1 %; Segmented Neutrophils 79 % (50-85); Total Cells Counted 100
[2019-07-26 06:18] LABS: Anisocytosis 1+; Hypochromasia Slight; Platelet Estimate Normal; Poikilocytosis Slight; Smudge Cells Few
[2019-07-26] MEDS ORDERED: FUROSEMIDE 20 MG/2 ML VIAL IV ONE (08:48)
[2019-07-26] MEDS: DILTIAZEM CD 180 MG CAPSULE PO SCH (10:04)
[2019-07-26] MEDS: OSELTAMIVIR 30 MG CAPSULE PO SCH ×2 (10:04→18:46)
[2019-07-26] MEDS: predniSONE 20 MG TABLET PO SCH ×2 (10:04→21:30)
[2019-07-26] MEDS: AMOXICILLIN/CLAV 875 MG TABLET PO SCH ×2 (10:04→18:46)
[2019-07-26] MEDS: clonazePAM 0.5 MG TABLET PO PRN ×2 (10:08→19:22)
[2019-07-26] MEDS ORDERED: METHOCARBAMOL 500 MG TABLET PO PRN (12:41)
[2019-07-26] MEDS ORDERED: MEGESTROL 40 MG TABLET PO PRN (12:41)
[2019-07-26] MEDS: THIAMINE 100 MG TABLET PO SCH (14:42)
[2019-07-26] MEDS: MELOXICAM 7.5 MG TABLET PO SCH (14:42)
[2019-07-26] MEDS: traZODone 50 MG TABLET PO SCH (21:30)
[2019-07-27] MEDS: ALBUTEROL/IPRATROPIUM 3 ML NEB RESP TX SCH ×4 (01:10→20:35)
[2019-07-27] MEDS: dilTIAZem Drip 125 MG/125 ML PREMIX IV SCH ×2 (02:51→05:49)
[2019-07-27 04:51] LABS: Basophils # 0.1 10*3/uL (0.0-0.2); Basophils % 0.4 % (0.0-0.8); Immature Granulocytes % 5.3 %; Lymphocytes # 1.1 10*3/uL (1.4-4.0); Lymphocytes % 6.3 % (21.2-54.2); Mean Corpuscular HGB Conc 28.1 GM/DL (32-36); Mean Corpuscular Volume 87.9 FL (87-102); Mean Platelet Volume 10.7 FL (9.6-12.0); Monocytes % 12.2 % (1.7-12.7); NRBC # 0.07 10*3/uL; Neutrophils % 75.8 % (38.7-73.9); Platelet Count 439 T/CUMM (130-400); Red Blood Count 3.97 MC/CUMM (3.8-5.5); Red Cell Distribution Width 17.1 % (9.3-17.3)
[2019-07-27 05:12] LABS: Calcium 8.6 MG/DL (8.5-10.1)
[2019-07-27 05:34] LABS: Hematocrit 34.1 VOL% (42.0-52.0)
[2019-07-27 05:35] LABS: Hemoglobin 9.9 GM/DL (14.0-18.0)
[2019-07-27 05:39] LABS: Lymphocytes 9 % (20-55); Metamyelocytes 1 %; Myelocytes 1 %; Nucleated Red Blood Cells 1 (0-5); Segmented Neutrophils 81 % (50-85); Total Cells Counted 100
[2019-07-27 05:40] LABS: Anisocytosis 1+; Hypochromasia 1+; Microcytosis 1+
[2019-07-27 05:41] LABS: Platelet Estimate Increased; Polychromasia Slight; Target Cells Slight
[2019-07-27] MEDS: THIAMINE 100 MG TABLET PO SCH (09:11)
[2019-07-27] MEDS: OSELTAMIVIR 30 MG CAPSULE PO SCH ×2 (09:11→16:39)
[2019-07-27] MEDS: MELOXICAM 7.5 MG TABLET PO SCH (09:11)
[2019-07-27] MEDS: DILTIAZEM CD 180 MG CAPSULE PO SCH (09:11)
[2019-07-27] MEDS: AMOXICILLIN/CLAV 875 MG TABLET PO SCH ×2 (09:11→16:39)
[2019-07-27] MEDS: predniSONE 20 MG TABLET PO SCH ×2 (09:11→22:29)
[2019-07-27] MEDS: clonazePAM 0.5 MG TABLET PO PRN ×2 (12:32→18:27)
[2019-07-27] MEDS: traZODone 50 MG TABLET PO SCH (22:29)
[2019-07-28] MEDS: ALBUTEROL/IPRATROPIUM 3 ML NEB RESP TX SCH (01:50)
[2019-07-28] MEDS ORDERED: METOPROLOL TARTRATE 5 MG/5 ML VIAL IV STA (02:00)
[2019-07-28 02:51] LABS: ABG Base Excess 4.9 MMOL/L (-2.5-2.5); ABG HCO3 28.8 MMOL/L (20-26); ABG Oxygen Saturation 95.3 % (95-100); ABG PCO2 61.6 MM HG (35-48); ABG PH 7.328 (7.35-7.45); ABG PO2 76.5 MM HG (80-95); ABG TCO2 29.8 MMOL/L (23-27); Allen Test Positive
[2019-07-28 05:35] LABS: Calcium 8.5 MG/DL (8.5-10.1); Osmolality,Calculated 288.4 MOS/KG (273-304)
[2019-07-28 05:39] LABS: Basophils # 0.1 10*3/uL (0.0-0.2); Basophils % 0.2 % (0.0-0.8); Hematocrit 33.4 VOL% (42.0-52.0); Hemoglobin 9.8 GM/DL (14.0-18.0); Immature Granulocytes % 4.5 %; Immature Granulocytes Absolute 0.97 #; Lymphocytes # 1.1 10*3/uL (1.4-4.0); Mean Corpuscular HGB Conc 29.3 GM/DL (32-36); Mean Corpuscular Volume 85.6 FL (87-102); Mean Platelet Volume 11.1 FL (9.6-12.0); Monocytes % 11.7 % (1.7-12.7); NRBC # 0.07 10*3/uL; Neutrophils % 78.6 % (38.7-73.9); Platelet Count 451 T/CUMM (130-400); Red Cell Distribution Width 17.1 % (9.3-17.3); White Blood Count 21.5 T/CUMM (4-12)
[2019-07-28 06:08] LABS: Hypochromasia 1+; Lymphocytes 6 % (20-55); Microcytosis 1+; Nucleated Red Blood Cells 1 (0-5); Platelet Estimate Adequate; Segmented Neutrophils 83 % (50-85); Total Cells Counted 100
[2019-07-28] MEDS: IPRATROPIUM 500 MCG/2.5 ML NEB RESP TX SCH ×3 (08:12→19:55)
[2019-07-28] MEDS: predniSONE 20 MG TABLET PO SCH (08:46)
[2019-07-28] MEDS: MELOXICAM 7.5 MG TABLET PO SCH (08:47)
[2019-07-28] MEDS: DILTIAZEM CD 180 MG CAPSULE PO SCH (08:47)
[2019-07-28] MEDS: THIAMINE 100 MG TABLET PO SCH (08:48)
[2019-07-28] MEDS: AMOXICILLIN/CLAV 875 MG TABLET PO SCH ×2 (08:48→16:34)
[2019-07-28] MEDS: clonazePAM 0.5 MG TABLET PO PRN (13:16)
[2019-07-28] MEDS: guaiFENesin/DM ER 600-30 MG TABLET PO PRN (19:44)
[2019-07-28] MEDS: ALUMINUM/MAGNES/SIMETH MAX STR 30 ML UDCUP PO PRN (19:45)
[2019-07-28] MEDS ORDERED: METOPROLOL TARTRATE 25 MG TABLET PO ONE (21:09)
[2019-07-28] MEDS ORDERED: METOPROLOL TARTRATE 5 MG/5 ML VIAL IV ONE (21:09)
[2019-07-28] MEDS: traZODone 50 MG TABLET PO SCH (22:17)
[2019-07-29] MEDS: clonazePAM 0.5 MG TABLET PO PRN (00:06)
[2019-07-29] MEDS: IPRATROPIUM 500 MCG/2.5 ML NEB RESP TX SCH ×4 (01:23→20:28)
[2019-07-29] MEDS: ALUMINUM/MAGNES/SIMETH MAX STR 30 ML UDCUP PO PRN ×2 (01:42→21:42)
[2019-07-29 06:27] LABS: Basophils % 0.2 % (0.0-0.8); Eosinophils % 0.1 % (0.00-10.9); Hematocrit 30.8 VOL% (42.0-52.0); Immature Granulocytes % 6.8 %; Immature Granulocytes Absolute 1.25 #; Lymphocytes # 1.9 10*3/uL (1.4-4.0); Lymphocytes % 10.5 % (21.2-54.2); Mean Corpuscular HGB Conc 28.6 GM/DL (32-36); Mean Corpuscular Volume 86.5 FL (87-102); Mean Platelet Volume 10.3 FL (9.6-12.0); Monocytes % 17.9 % (1.7-12.7); NRBC # 0.07 10*3/uL; Neutrophils % 64.5 % (38.7-73.9); Platelet Count 446 T/CUMM (130-400); Red Blood Count 3.56 MC/CUMM (3.8-5.5); White Blood Count 18.3 T/CUMM (4-12)
[2019-07-29 06:28] LABS: Hemoglobin 8.8 GM/DL (14.0-18.0)
[2019-07-29 07:55] LABS: Band Neutrophils 1 % (0-10); Lymphocytes 10 % (20-55); Segmented Neutrophils 73 % (50-85); Total Cells Counted 100
[2019-07-29 07:56] LABS: Hypochromasia 1+; Microcytosis 1+; Ovalocytes Slight; Platelet Estimate Adequate
[2019-07-29] MEDS: DILTIAZEM CD 180 MG CAPSULE PO SCH (10:42)
[2019-07-29] MEDS: MELOXICAM 7.5 MG TABLET PO SCH (10:42)
[2019-07-29] MEDS: predniSONE 20 MG TABLET PO SCH (10:43)
[2019-07-29] MEDS: THIAMINE 100 MG TABLET PO SCH (10:44)
[2019-07-29] MEDS: AMOXICILLIN/CLAV 875 MG TABLET PO SCH ×2 (10:46→16:37)
[2019-07-30] MEDS: IPRATROPIUM 500 MCG/2.5 ML NEB RESP TX SCH ×3 (00:48→13:37)
[2019-07-30] MEDS: ALUMINUM/MAGNES/SIMETH MAX STR 30 ML UDCUP PO PRN (03:01)
[2019-07-30] MEDS: AMOXICILLIN/CLAV 875 MG TABLET PO SCH (09:58)
[2019-07-30] MEDS: DILTIAZEM CD 180 MG CAPSULE PO SCH (09:58)
[2019-07-30] MEDS: predniSONE 20 MG TABLET PO SCH (09:58)
[2019-07-30] MEDS: THIAMINE 100 MG TABLET PO SCH (09:58)
[2019-07-30] MEDS: MELOXICAM 7.5 MG TABLET PO SCH (09:58)
[2019-07-30 16:15] VITALS: BP 143/84
== END 2019-07-30 19:01 | disposition home or self-care (01) | DRG 871 ==
LOC: N.CC 21:29 → SUATTDRO 21:29 → N.ICU 07-25 18:02 → N.TELEN 07-26 11:14
PROVIDERS: ADMIT Internal Medicine; ATTEND Internal Medicine Nephrology